=== PATIENT | male | born 1995 | race Caucasian/White ===

== ENCOUNTER → 2021-04-18 | Emergency (ER) | payer OTHER, MEDICAID | END | disposition left against medical advice (07) | LOC: ER 19:35 | DX: S05.90XA Unspecified injury of unspecified eye and orbit, initial encounter (principal); Z53.21 Procedure and treatment not carried out due to patient leaving prior to being seen by health care provider; X58.XXXA Exposure to other specified factors, initial encounter; Y93.89 Activity, other specified; Y92.89 Other specified places as the place of occurrence of the external cause; Y99.8 Other external cause status ==